=== PATIENT | female | born 1950 | race Caucasian/White ===

== ENCOUNTER 2021-11-09 15:26 | Emergency (ER) | payer OTHER ==
[~2021-11-09] VITALS: Ht 157.5 cm; Wt 68.0 kg
[2021-11-09] MEDS ORDERED: MORPHINE SULFATE 4 MG/ML SYR/VIAL IV ONE (16:45)
[2021-11-09] MEDS ORDERED: ONDANSETRON HCL 4 MG/2 ML VIAL IV ONE (16:45)
[2021-11-09] MEDS ORDERED: FAMOTIDINE (10MG/ML) 2ML VL IV ONE (16:45)
[2021-11-09 16:54] LABS: Basophils # (auto) 0 10 ^3/uL (0-0.2); Basophils % (auto) 0.7 % (0.0-2.0); Eosinophils # (auto) 0.2 10 ^3/uL (0-0.8); Eosinophils % (auto) 3.3 % (0.0-7.0); Hematocrit 48.6 % (36.0-46.0); Hemoglobin 16.4 g/dL (12.2-16.2); Lymphocytes # (auto) 1.5 10 ^3/uL (0.4-5.4); Lymphocytes % (auto) 24.3 % (10.0-50.0); Mean Corpuscular Hgb Conc. 33.8 g/dL (32.0-36.0); Mean Corpuscular Volume 88.8 fL (80.0-100.0); Monocytes # (auto) 0.8 10 ^3/uL (0-1.3); Monocytes % (auto) 13.2 % (0.0-12.0); Neutrophils # (auto) 3.5 10 ^3/uL (1.6-8.6); Neutrophils % (auto) 58.5 % (37.0-80.0); Nucleated Red Blood Cells % 0.2 %; Red Blood Cells 5.47 10^6/uL (4.0-5.20); Red Cell Distribution Width 13.9 % (11.8-14.3)
[2021-11-09 17:00] LABS: Albumin 3.6 g/dL (3.4-5.0); Calcium 9.8 mg/dL (8.5-10.1); Potassium 3.8 mmol/L (3.5-5.1)
[2021-11-09 17:05] LABS: Bilirubin, Total 1.1 mg/dL (0.2-1.0); Total Protein 7.4 g/dL (6.4-8.2)
[2021-11-09 17:38] LABS: Urine Bacteria FEW /hpf (None Seen); Urine Blood Negative /uL (Negative); Urine Mucus FEW (None Seen); Urine WBC 70 /hpf (0 - 5)
[2021-11-09] MEDS ORDERED: IOHEXOL 300 MG/ML 100ML BOTTLE IJ ONE (18:23)
[2021-11-09 19:54] VITALS: BP 129/47
[2021-11-12 12:59] LABS: Hepatitis A Ab IgM Negative; Hepatitis B Core IgM Negative; Hepatitis C Antibody Negative (Negative)
== END 2021-11-09 23:22 | disposition left against medical advice (07) ==
LOC: ER 15:26
DX: R74.01 Elevation of levels of liver transaminase levels (principal); N39.0 Urinary tract infection, site not specified; I10 Essential (primary) hypertension; I25.10 Atherosclerotic heart disease of native coronary artery without angina pectoris; Z88.2 Allergy status to sulfonamides; Z86.73 Personal history of transient ischemic attack (TIA), and cerebral infarction without residual deficits
CPT/HCPCS: 36415; 74177; 80053; 80074; 81001; 83605; 83735; 84484; 85025; 93005; 96374; 96375; 99285; J2405; J3490; Q9967